=== PATIENT | female | born 1955 | race Caucasian/White ===

== ENCOUNTER → 2019-08-27 09:12 | Outpatient (CLI) | payer BC, SELFPAY ==
--- NOTE | ~2019-08-27 | DEXA_ITS ---
Bone Density Report Name: Deonna Joyce Age: 64 Sex: Female Ethnicity: White Date of : 1955 Indication: postmenopausal; screening for osteoporosis; height loss; Referring Provider: ANRDEZ, EMIR Study: Bone densitometry was performed. Exam Date: August 27, 2019 Accession number: [id number] Bone Density: Region BMD T-score Z-score Classification AP Spine (L1-L4) 0.955 -0.8 0.7 Normal Femoral Neck (Left) 0.760 -0.8 0.6 Normal Total Hip (Left) 0.857 -0.7 0.4 Normal Femoral Neck (Right) 0.776 -0.7 0.7 Normal Total Hip (Right) 0.879 -0.5 0.6 Normal Total Hip Mean 0.868 -0.6 0.5 Normal World Health Organization criteria for BMD impression classify patients as: Normal (T-score at or above -1.0), Osteopenia (T-score between -1.0 and -2.5), or Osteoporosis (T-score at or below -2.5). 10-year Fracture Risk: FRAX not reported because: All T-scores for Spine Total, Hip Total, Femoral Neck at or above -1.0 Previous Exams: Region Exam Age BMD T-score BMD Change BMD Change Date g/cm2 vs Baseline vs Previous AP Spine(L1-L4) 08/27/2019 64 0.955 -0.8 0.059 -0.021 08/25/2016 61 0.975 -0.7 0.080* 0.080* 08/16/2014 59 0.896 -1.4 Total Hip(Left) 08/27/2019 64 0.857 -0.7 0.053 0.010 08/25/2016 61 0.846 -0.8 0.043* 0.043* 08/16/2014 59 0.803 -1.1 Total Hip(Right) 08/27/2019 64 0.879 -0.5 0.040 0.016 08/25/2016 61 0.863 -0.6 0.024 0.024 08/16/2014 59 0.839 -0.8 *Denotes significance at 95% confidence level, LSC for AP Spine = 0.022 g/cm2, LSC for Total Hip = 0.027 g/cm2 Clinical Information Provided by Patient: Has used the following medications: Vitamin D, Calcium Patient maximum height was 65 Menopause Age: 56 No regular weight bearing exercise Drinks caffeinated beverages Onset of menses at age 15 Number of children 0 Impression: The patient has normal bone mass. No significant bone loss was observed. Discussion: BONE DENSITY IS ABOVE THE MINIMUM DESIRABLE LEVEL AT ALL SKELETAL SITES TESTED. This patient?s bone mineral density is above the minimum desirable level (T-score -1.0 or better) at all sites measured. The patient should follow a healthful lifestyle (good nutrition with adequate calcium and vitamin D, and appropriate weight-bearing exercise). Follow-Up: Consider repeating this s
== END ==
PROVIDERS: PCP Family Medicine; Visit Provider Nurse Practitioner
DX: Z78.0 Asymptomatic menopausal state (principal)
CPT/HCPCS: 77080

== ENCOUNTER 2020-11-21 11:33 | Emergency (ER) | payer BC, SELFPAY ==
[2020-11-21 11:46] VITALS: BP 141/91; PULSE 94; RESP 16; TEMP 37.2; O2SAT 96
--- NOTE | 2020-11-21 11:50 | ED.SKABFB ---
HPI - Skin/Abscess/Foreign Bdy General Chief complaint: Skin/Abscess/Foreign Body Stated complaint: RED SPOTS AND BRUISING ON THIGHS History of Present Illness HPI narrative: This is a 65-year-old female that comes in complaining of bruising and red spots was itching that is been going on for the past 2 to 3 days. Patient is concerned that she may be bit by a recluse spider. Patient denies any fever nausea vomiting diarrhea states she is urinating and drinking plenty of fluids.There are several red area with bruising surrounding on the upper thigh bilaterally and it is not painful. Patient states she has been looking on the internet and she want to make sure that it is not sepsis. Patient states she went to her pcp office and they could not see her today. Related Data Home Medications Medication Instructions Recorded Confirmed aspirin 81 mg tablet,delayed 81 mg PO DAILY 05/22/19 05/22/19 release ergocalciferol (vitamin D2) 1,250 50,000 unit PO WEEKLY 05/22/19 05/22/19 mcg (50,000 unit) capsule acetaminophen 325 mg capsule 325 mg PO Q6H PRN 05/30/20 melatonin 3 mg capsule mg PO 05/30/20 multivitamin 1 tablet PO DAILY 05/30/20 Allergies Allergy/AdvReac Type Severity Reaction Status Date / Time methocarbamol Allergy Intermediate LIGHT Verified 05/30/20 14:03 HEADED/DIZZINESS tramadol Allergy Unknown Unknown Verified 05/30/20 14:03 Review of Systems Review of Systems: Narrative: CONSTITUTIONAL: Denies fever, chills, or sweats. EYES: Denies visual changes, redness, or discharge. ENT: Denies rhinorrhea, congestion, sore throat, or otalgia. CARDIOVASCULAR:Denies chest pain, palpitations, or edema. RESPIRATORY: Denies cough or dyspnea. GASTROINTESTINAL: Denies abdominal pain, nausea, vomiting, or diarrhea. GENITOURINARY: Denies dysuria or hematuria. SKIN: reports rash or itching. MUSCULOSKELETAL:Denies back pain, joint pain, or myalgia. NEUROLOGIC: Denies headache, numbness, or weakness. PSYCHIATRIC:Denies anxiety or depression [facility] Past Medical History Medical History (Updated 11/21/20 @ 12:29 by Girish Amaral NP) Anxiety Essential (primary) hypertension Hypertriglyceridemia Migraine Obstructive sleep apnea Osteopenia Prediabetes Vitamin D deficiency Surgical History Surgical History (Reviewed 05/30/20 @ 14:04 by Shalini De La Vega [facility]) History of cholecystectomy Family History Family History (Reviewed 05/30/20 @ 14:04 by Shalini De La Vega [facility]) Mother Carcinoma of colon, Onset Age: 88 Father Carcinoma of colon Social History Social History (Reviewed 05/30/20 @ 14:04 by Shalini De La Vega [facility]) Smoking status: Never smoker Second hand tobacco smoke exposure: No Alcohol intake: never Comments At time as signature, I have reviewed and agree with nursing past medical, social, surgical and family history. Please see nursing chart for further information. There is no relevant family history pertinent to the presenting complaint. Exam Narrative: Exam Narrative: GENERAL:Well-appearing, well-nourished, and in no acute distress. HEAD:Normocephalic, atraumatic. EYES: PERRLA and EOMI. ENT: Nares clear, no rhinorrhea or epistaxis. Mucous membranes moist. NECK: Supple. CHEST: Clear to auscultation. No respiratory distress. HEART: Regular rate and rhythm. Normal peripheral pulses. ABDOMEN: Soft, nontender, nondistended, normal active bowel sounds. EXTREMITIES: Normal range of motion. No edema. SKIN: Warm dry multiple areas of bruising on upper thigh multiple stages of bruising areas bilaterally pinpoint erythema areas in the upper thigh NEURO: No focal deficits. Alert and oriented x3. Course FLOUR BLENDER/PA Physician Supervision Call Dr. Beaver's office spoke with the nurse who schedule an appointment we discussed setting up labs informed to go ahead and set up the labs of them sent to the office and they will call her if there is any abnormalities that she may need to be seen ear
== END 2020-11-21 12:37 | disposition home or self-care (01) ==
PROVIDERS: Emergency Provider Nurse Practitioner Family; PCP Family Medicine
DX: M79.81 Nontraumatic hematoma of soft tissue (principal); L23.9 Allergic contact dermatitis, unspecified cause; I10 Essential (primary) hypertension; G47.33 Obstructive sleep apnea (adult) (pediatric); M81.0 Age-related osteoporosis without current pathological fracture; R73.03 Prediabetes; E55.9 Vitamin D deficiency, unspecified; E78.1 Pure hyperglyceridemia; Z79.82 Long term (current) use of aspirin
CPT/HCPCS: 99213; G0463

== ENCOUNTER 2021-02-24 01:36 | Day surgery (SDC) | payer BC, SELFPAY ==
[2021-02-11 14:42] VITALS: BMI 33.3
[2021-02-24 08:58] VITALS: BP 150/105; PULSE 100; RESP 19; TEMP 36.5; O2SAT 99; BMI 31.6
[2021-02-24] MEDS: LACTATED RINGERS 1,000 ML 150 ML IV CONT (09:11)
--- NOTE | 2021-02-24 09:17 | WPDGICN ---
Assessment and Plan Assessment and plan (1) FH: colon cancer: Code(s): Z80.0 - Family history of malignant neoplasm of digestive organs Status: Acute Assessment and Plan: Both mother and father have had colon cancer for this reason surveillance colonoscopy is recommended at least every 5 years in the future. (2) Colonic polyp: Code(s): K63.5 - Polyp of colon Status: Acute Assessment and Plan: Patient has a prior history of adenomatous colon polyps removed from the colon most recently 2018. Plan is for surveillance colonoscopy at this time. GI Consult Note Consult date/time: 02/24/21 09:17 HPI: Deonna Joyce is a 66 year old female Presents for screening colonoscopy. Patient has a past medical history of adenoma of the colon removed from the colon 2018. She states that her current weight appetite bowel movements are normal. Patient denies abdominal pain. She has had no bleeding. Family history is noncontributory. She presents today for screening colonoscopy. Family history is significant both mother and father had colon cancer. Review of Systems Review of Systems: All systems reviewed & are unremarkable except as noted in HPI and below PMFSH Past Medical History Medical History Anxiety Colonic polyp Essential (primary) hypertension FH: colon cancer Hypertriglyceridemia Migraine Obstructive sleep apnea Osteopenia Prediabetes Vitamin D deficiency Surgical History Surgical History History of cholecystectomy Family History Family History Mother Carcinoma of colon, Onset Age: 88 Father Carcinoma of colon Social History Social History Smoking status: Former smoker Tobacco type: cigarettes Second hand tobacco smoke exposure: No Alcohol intake: current Alcohol use details: Monthly Substance use: never Substance use type: does not use Living arrangements: alone Gender identity (if verbalized by the patient): Female Spiritual care concerns: No Meds Home Medications and Allergies Home Medications Medication Instructions Recorded Confirmed Type aspirin 81 mg tablet,delayed 81 mg PO DAILY 05/22/19 02/11/21 History release acetaminophen 325 mg capsule 650 mg PO Q6H PRN 05/30/20 02/11/21 History melatonin 3 mg capsule 3 mg PO HS 05/30/20 02/11/21 History ergocalciferol (vitamin D2) 1,250 50,000 unit PO .2XM cap 12/05/20 02/11/21 History mcg (50,000 unit) capsule losartan 50 mg tablet 50 mg PO DAILY #90 tablet 12/05/20 02/11/21 Rx Allergies Allergy/AdvReac Type Severity Reaction Status Date / Time methocarbamol Allergy Intermediate LIGHT Verified 02/24/21 08:56 HEADED/DIZZINESS tramadol Allergy Unknown Unknown Verified 02/24/21 08:56 Vital Signs Vital Signs - 24 hr 02/24/21 08:58 Temperature 97.7 F Pulse Rate 100 Respiratory Rate 99 H Blood Pressure 150/105 H Pulse Oximetry 99 Exam Narrative: Physical exam reveals patient to be alert. Vital signs stable. HEENT exam is unremarkable. Patient is anicteric. Lungs are clear to auscultation and percussion. Heart is without murmur or extra sounds. Abdominal exam bowel sounds are present soft nontender with no hepatosplenomegaly. Digital external rectal exam is normal.
--- NOTE | 2021-02-24 09:19 | WPDANESEPPF ---
Anes - Initial Pre Proc Eval Procedure: Operation Date: 02/24/21 10:00 Proposed Procedures p Screening Colonoscopy - Elroy Anderson MD Date/Time: 02/24/21 09:19 Surgeon: Elroy Anderson MD Pre Op Diagnosis: hx of colon polyps Patient Data Age: 66 Gender: F Height: 1.65 m Weight: 86.4 kg Last Vital Signs Temp 97.7 F 02/24/21 08:58 Pulse 100 02/24/21 08:58 Resp 99 H 02/24/21 08:58 BP 150/105 H 02/24/21 08:58 Pulse Ox 99 02/24/21 08:58 Allergies Allergy/AdvReac Type Severity Reaction Status Date / Time methocarbamol Allergy Intermediate LIGHT Verified 02/24/21 08:56 HEADED/DIZZINESS tramadol Allergy Unknown Unknown Verified 02/24/21 08:56 Home Medications Medication Instructions Recorded Confirmed Type aspirin 81 mg tablet,delayed 81 mg PO DAILY 05/22/19 02/11/21 History release acetaminophen 325 mg capsule 650 mg PO Q6H PRN 05/30/20 02/11/21 History melatonin 3 mg capsule 3 mg PO HS 05/30/20 02/11/21 History ergocalciferol (vitamin D2) 1,250 50,000 unit PO .2XM cap 12/05/20 02/11/21 History mcg (50,000 unit) capsule losartan 50 mg tablet 50 mg PO DAILY #90 tablet 12/05/20 02/11/21 Rx Patient hx anesthesia problems: none Family hx anesthesia problems: none PMFSH Past Medical History Medical History Anxiety Colonic polyp Essential (primary) hypertension FH: colon cancer Hypertriglyceridemia Migraine Obstructive sleep apnea Osteopenia Prediabetes Vitamin D deficiency Surgical History Surgical History History of cholecystectomy Family History Family History Mother Carcinoma of colon, Onset Age: 88 Father Carcinoma of colon Social History Social History Smoking status: Former smoker Tobacco type: cigarettes Second hand tobacco smoke exposure: No Alcohol intake: current Alcohol use details: Monthly Substance use: never Substance use type: does not use Living arrangements: alone Gender identity (if verbalized by the patient): Female Spiritual care concerns: No Anes - Eval Final PreProcedure Day of Procedure 02/24/21 09:19 Patient weight: overweight Heart: regular rate and rhythm Lungs: clear to auscultation Airway: Mallampati scale class II Neurological: alert and oriented Last oral intake: >/= 8 hours ASA classification: III Emergent: no Anesthetic plan: proceed Anesthesia type and monitoring: general GIVS and standard monitoring Informed Consent: The patient's anesthetic plan and its attendant risks and benefits were discussed with the patient/family/POA. Questions were solicited and answers provided to the satisfaction of the patient/family/POA.
[2021-02-24 10:30] VITALS: BP 124/78; PULSE 79; RESP 19; O2SAT 99
[2021-02-24 10:40] VITALS: BP 148/91; PULSE 73; RESP 22; O2SAT 100
[2021-02-24 10:50] VITALS: BP 162/87; PULSE 75; RESP 17; O2SAT 99
== END 2021-02-24 10:58 | disposition home or self-care (01) ==
PROVIDERS: PCP Family Medicine; Visit Provider Internal Medicine Gastroenterology
PROC: 0DJD8ZZ Inspection of Lower Intestinal Tract, Via Natural or Artificial Opening Endoscopic (ICD-10-PCS; CPT 45378; principal; 2021-02-24 10:00)
DX: Z12.11 Encounter for screening for malignant neoplasm of colon (principal); Z80.0 Family history of malignant neoplasm of digestive organs; K63.5 Polyp of colon; K57.30 Diverticulosis of large intestine without perforation or abscess without bleeding; K64.8 Other hemorrhoids; Z79.82 Long term (current) use of aspirin; F41.9 Anxiety disorder, unspecified; I10 Essential (primary) hypertension; E78.1 Pure hyperglyceridemia; G47.33 Obstructive sleep apnea (adult) (pediatric); E55.9 Vitamin D deficiency, unspecified; R73.03 Prediabetes; Z90.49 Acquired absence of other specified parts of digestive tract; Z87.891 Personal history of nicotine dependence
CPT/HCPCS: 45385; 88305; J2001; J2704; J7120

== ENCOUNTER 2022-02-17 14:24 | Outpatient (CLI) | payer MEDICARE, SELFPAY ==
--- NOTE | ~2022-02-17 | CT_ITS ---
EXAMINATION: CT abdomen pelvis w con INDICATION: Lower abdominal pain TECHNIQUE: Computed tomographic images of the abdomen and pelvis were obtained after the administrati on of 100 cc of Omnipaque 350 intravenous contrast. The dose-length product (DLP) was 667.48 mGy-cm. Automated exposure control and iterative reconstruction technique were employed. COMPARISON: 03/20/2018, 07/23/2014 FINDINGS: Minimal dependent atelectasis is present in the lung bases. The heart size is normal. A sta ble 4 mm nodule of the left lower lobe is consistent with old granulomatous disease. The gallbladder is surgically absent. The liver, spleen, and adrenal glands are normal. There is a splenule in the ta il of the pancreas. Cysts of the kidneys measure up to 9 mm on the right. No pathologically enlarged abdominal or pelvic lymph nodes are identified. There is no free intraperitoneal gas or evidence of b owel obstruction. Colonic diverticulosis is present without evidence of diverticulitis. There is katlin re lumbar spondylosis at L5-S1. IMPRESSION: 1. No CT correlate for the patient's symptoms. Reviewed, dictated and finalized at location B.
== END 2022-02-17 14:25 | disposition home or self-care (01) ==
PROVIDERS: PCP Family Medicine; Visit Provider Physician Assistant Medical
DX: R10.9 Unspecified abdominal pain (principal)
CPT/HCPCS: 74177; Q9967

== ENCOUNTER → 2022-03-04 12:22 | Outpatient (CLI) | payer MEDICARE, SELFPAY ==
--- NOTE | ~2022-03-04 | US_ITS ---
EXAMINATION: US transvaginal DATE: 03/04/2022 13:01 INDICATION: Bloating. Pelvic fullness. Comparison: CT dated 02/17/2022 TECHNIQUE: Multiple endovaginal sonographic images of the pelvis performed. FINDINGS: The uterus measures 4.9 x 2.1 x 2.4 cm. The endometrial complex measures 3 mm. The ovaries are not visualized. There is no free fluid in the pelvis. There are no abnormal masses seen on either side. IMPRESSION: 1. Unremarkable pelvic ultrasound. Reviewed, dictated and finalized at location A.
== END ==
PROVIDERS: PCP Family Medicine; Visit Provider Obstetrics & Gynecology Gynecology
DX: R10.2 Pelvic and perineal pain (principal); R19.00 Intra-abdominal and pelvic swelling, mass and lump, unspecified site
CPT/HCPCS: 76830

== ENCOUNTER → 2022-03-04 12:24 | Outpatient (CLI) | payer MEDICARE, SELFPAY ==
--- NOTE | ~2022-03-04 | US_ITS ---
US retroperitoneal comp 03/04/2022 13:03 Procedure: Realtime transabdominal ultrasound of the kidneys and bladder. Indication: Renal cysts Comparison: 02/17/2022 Findings: Renal echotexture is normal bilaterally without hydronephrosis, contour deforming mass or r enal calculus. There is an 8 mm right renal cyst. The right kidney measures 9.1 cm and left kidney me asures 8.6 cm. Bladder within normal limits. Impression: 1: Right renal cyst measures 8 mm. Reviewed, dictated and finalized at location A. Impression: 1: Right renal cyst measures 8 mm.
== END ==
PROVIDERS: PCP Family Medicine
DX: N28.1 Cyst of kidney, acquired (principal)
CPT/HCPCS: 76770

== ENCOUNTER 2023-04-01 13:43 | Outpatient (CLI) | payer MEDICARE, SELFPAY ==
--- NOTE | ~2023-04-01 | CT_ITS ---
EXAMINATION: CT abdomen pelvis wo con DATE: 04/01/2023 14:09 INDICATION: Left lower quadrant pain TECHNIQUE: Computed tomography (CT) of the abdomen and pelvis was performed without intravenous contr ast. The dose-length product (DLP) was 871.00 mGy-cm. Automated exposure control and iterative recons truction technique were employed. COMPARISON: 02/17/2022 FINDINGS: Minimal dependent atelectasis is present in the lung bases. The heart size is normal. Song es of cholecystectomy are noted. The liver, spleen,, and adrenal glands are normal. There is a splenu le in the tail of the pancreas. The kidneys are unremarkable. No pathologically enlarged abdominal or pelvic lymph nodes are identified. No free intraperitoneal gas or evidence of bowel obstruction. The appendix is normal. There is severe lumbar spondylosis at L5-S1. Colonic diverticulosis is present w ithout evidence of diverticulitis. IMPRESSION: 1. No CT correlate for the patient's symptoms. Reviewed, dictated and finalized at location F.
== END 2023-04-01 13:44 | disposition home or self-care (01) ==
PROVIDERS: PCP Family Medicine; Visit Provider Family Medicine
DX: R10.32 Left lower quadrant pain (principal)
CPT/HCPCS: 74176

== ENCOUNTER 2024-03-26 10:06 | Outpatient (CLI) | payer MEDICARE, SELFPAY ==
--- NOTE | ~2024-03-26 | DEXA_ITS ---
Bone Density Report Name: RADHA OLMEDO Age: 69 Sex: Female Ethnicity: White Date of : 1955 Indication: postmenopausal; screening for osteoporosis; height loss; Referring Provider: ANDREZ, EMIR Study: Bone densitometry was performed. Exam Date: March 26, 2024 Accession number: [id number] Bone Density: Region BMD T-score Z-score Classification AP Spine(L1-L4) 0.917 -1.2 0.7 Osteopenia Femoral Neck (Left) 0.680 -1.5 0.1 Osteopenia Total Hip (Left) 0.846 -0.8 0.6 Normal Femoral Neck (Right) 0.749 -0.9 0.7 Normal Total Hip (Right) 0.890 -0.4 0.9 Normal Total Hip Mean 0.868 -0.6 0.8 Normal World Health Organization criteria for BMD impression classify patients as: Normal (T-score at or above -1.0), Osteopenia (T-score between -1.0 and -2.5), or Osteoporosis (T-score at or below -2.5). 10-year Fracture Risk(1): Major Osteoporotic Fracture 8.7% Hip Fracture 1.0% Reported Risk Factors: [place] (), Neck BMD=0.680, BMI=35.8 (1) FRAX(R) Version 3.08. Fracture probability calculated for an untreated patient. Fracture probability may be lower if the patient has received treatment. Clinical Information Provided by Patient: Has used the following medications: Vitamin D Patient maximum height was 65.0 No regular weight bearing exercise Drinks caffeinated beverages Onset of menses at age 15 Number of children 0 Impression: The patient has low bone mass, based on the Left Femoral Neck T-score. The patient has an estimated ten-year risk of hip fracture of 1% and an estimated ten-year risk of major fracture of 8.7%, based on the WHO FRAX algorithm. Discussion: BONE DENSITY IS LOW AT ONE OR MORE SKELETAL SITES. This patient's lowest T-score is low at one or more skeletal sites. It meets the World Health Organization's (WHO) criteria for ?low bone mass? (T-score between -1.0 and -2.5). The patient's 10-year risk of fracture as calculated by FRAX is less than the threshold where pharmacological therapy is recommended by the National Osteoporosis Foundation (NOF). However, all treatment decisions require clinical judgment and consideration of individual patient factors, including patient preferences, comorbidities, previous drug use, risk factors not captured in the FRAX model (e.g., frailty, falls, vitamin D deficiency, increased bone turnover, interval significant decline in bone density) and possible under or overestimation of fracture risk by FRAX. The patient should follow a healthful lifestyle (good nutrition with adequate calcium and vitamin D, and appropriate weight-bearing exercise). Follow-Up: Consider repeating this study in 2 to 3 years to reassess this patient's status, or sooner if there is some new clinical indication. Reported by: RUBEN on 03/26
== END 2024-03-26 10:07 | disposition home or self-care (01) ==
LOC: ANHIMG 10:08
PROVIDERS: PCP Family Medicine; Visit Provider Nurse Practitioner
DX: Z78.0 Asymptomatic menopausal state (principal); M85.88 Other specified disorders of bone density and structure, other site; M85.852 Other specified disorders of bone density and structure, left thigh
CPT/HCPCS: 77080